=== PATIENT | male | born 1950 | race Caucasian/White ===

== ENCOUNTER → 2016-07-17 | Outpatient (CLI) | payer OTHER | LOC: BMCIMAGING 11:11 | PROVIDERS: ATTEND Internal Medicine | DX: J01.00 Acute maxillary sinusitis, unspecified (principal) ==

== ENCOUNTER 2018-11-19 15:29 | Observation (INO) | payer OTHER | END 2018-11-20 11:51 | disposition home or self-care (01) | LOC: FSGY 15:29 → F3N 20:30 ==

== ENCOUNTER → 2018-11-19 | Outpatient (CLI) | payer OTHER | LOC: FIMAGING 08:52 ==